=== PATIENT | female | born 1970 | race Caucasian/White ===

== ENCOUNTER 2016-03-26 13:50 | Inpatient (IN) | payer MEDICAID, OTHER ==
[2016-03-26] MEDS ORDERED: SODIUM CHLORIDE 0.9% 500 ML IV STA (14:27)
--- NOTE | 2016-03-26 14:37 | ED ---
Overdose HPI - General Chief Complaint: Overdose Stated Complaint: Overdose Time Seen by Provider: 03/26/16 14:17 Source: EMS Mode of arrival: EMS - History of Present Illness Initial Comments: Vision has a history of anorexia nervosa pain now history of long-standing depression mom found her this morning passed out then she told mom that she should take some Tylenol about 3 AM in the morning then she admitted that she snorted some of reflexes she has a long history of depression recently seen her PA on the increased her dose of Effexor and she was started on Buspar at this point is that this point she denies any suicidal attempt but she admits she is very depressed no headaches no neck stiffness has been coughing no abdominal pain no frequency urgency dysuria no weakness of upper or lower extremity - Related Data Home Medications Medication Instructions Recorded Confirmed No Known Home Medications [No 03/26/16 03/26/16 Known Home Medications] Allergies Allergy/AdvReac Type Severity Reaction Status Date / Time No Known Allergies Allergy Verified 03/26/16 14:07 Review of Systems ROS Statement: Those systems with pertinent positive or pertinent negative responses have been documented in the HPI. ROS Other: All systems not noted in ROS Statement are negative. Past Medical History Past Medical History: Thyroid Disorder Additional Past Medical History / Comment(s): anxorexia, buliemia, depression History of Any Multi-Drug Resistant Organisms: None Reported Additional Past Surgical History / Comment(s): breast inplants Past Psychological History: Anxiety, Depression Additional Psychological History / Comment(s): Eating disorder Smoking Status: Current every day smoker Past Alcohol Use History: None Reported Additional Past Alcohol Use History / Comment(s): Patient is a smoker of 3-4 cigarettes per day. She denies use of alcohol. She denies any medical marijuana marijuana or street drug use. Past Drug Use History: None Reported - Past Family History Mother Additional Family Medical History / Comment(s): Mother is healthy at age 71. Father Additional Family Medical History / Comment(s): Father is alive and healthy at age 80. Brother(s) Additional Family Medical History / Comment(s): Patient has 2 brothers and one sister and they are all healthy. General Exam - General Exam Comments Initial Comments: General: The patient is awake and very slow to answer, she has eyes open, answers are appropriate. Very very slow Skin: Skin is warm and dry and no rashes or lesions are noted. Eye: Pupils are equal, round and reactive to light, extra-ocular movements are intact; there is normal conjunctiva bilaterally. Ears, nose, mouth and throat: There are moist mucous membranes and no oral lesions. Neck: The neck is supple, there is no tenderness or JVD. Cardiovascular: There is a regular rate and rhythm. No murmur, rub or gallop is appreciated. Respiratory: To auscultation bilateral, no wheezing no rhonchi no distress respiratory judd noticed Gastrointestinal: Did not allow me to examine her belly Back: There is no tenderness to palpation in the midline. There is no obvious deformity. Musculoskeletal: Normal ROM, no tenderness, There is no pedal edema. There is no calf tenderness or swelling. No cords were appreciated. Neurological: CN II-XII intact, Cranial nerves III through XII are intact. There are no obvious motor or sensory deficits. Coordination appears grossly intact. Speech is normal. Psychiatric: Seems depressed, weak pale cachectic denies any suicidal or homicidal ideation. Course Vital Signs 03/26/16 03/26/16 03/26/16 13:54 15:40 16:43 Temperature 96.8 F L Pulse Rate 65 77 77 Respiratory 16 16 14 Rate Blood Pressure 95/63 94/53 94/55 O2 Sat by Pulse 100 100 98 Oximetry EKG shows ventricular rate of 72 is normal sinus rhythm PA interval is 1:30 QRS duration is 82 QT/QTc is 414/453 review of this EKG does not show any ST elevation or ST depression We did call poison control and now they recommended supportive care at this point correction of the electrolyte imbalance and dehydration Medical Decision Making - Lab Data Result diagrams: 03/26/16 15:14 03/26/16 14:10 Lab Results 03/26/16 03/26/16 03/26/16 Range/Units 14:10 14:10 14:10 WBC (3.8-10.6) k/uL RBC (3.80-5.40) m/uL Hgb (11.4-16.0) gm/dL Hct (34.0-46.0) % MCV (80.0-100.0) fL MCH (25.0-35.0) pg MCHC (31.0-37.0) g/dL RDW (11.5-15.5) % Plt Count (150-450) k/uL Neutrophils % % Lymphocytes % % Monocytes % % Eosinophils % % Basophils % % Neutrophils # (1.3-7.7) k/uL Lymphocytes # (1.0-4.8) k/uL Monocytes # (0-1.0) k/uL Eosinophils # (0-0.7) k/uL Basophils # (0-0.2) k/uL PT 10.9 (9.0-12.0) sec INR 1.1 (<1.1) Sodium 142 (137-145) mmol/L Potassium 3.6 (3.5-5.1) mmol/L Chloride 104 (98-107) mmol/L Carbon Dioxide 27 (22-30) mmol/L Anion Gap 11 mmol/L BUN 10 (7-17) mg/dL Creatinine 0.50 L (0.52-1.04) mg/dL Est GFR (MDRD) Af Amer >60 (>60 ml/min/1.73 sqM) Est GFR (MDRD) Non-Af >60 (>60 ml/min/1.73 sqM) Glucose 94 (74-99) mg/dL Plasma Lactic Acid Sean 1.1 (0.7-2.0) mmol/L Calcium 8.3 L (8.4-10.2) mg/dL Total Bilirubin 0.2 (0.2-1.3) mg/dL AST 17 (14-36) U/L ALT 28 (9-52) U/L Alkaline Phosphatase 72 (38-126) U/L Troponin I (0.000-0.034) ng/mL Total Protein 5.2 L (6.3-8.2) g/dL Albumin 3.0 L (3.5-5.0) g/dL Urine HCG, Qual (Not Detectd) Salicylates <1.0 mg/dL Urine Opiates Screen (NotDetected) Ur Oxycodone Screen (NotDetected) Urine Methadone Screen (NotDetected) Ur Propoxyphene Screen (NotDetected) Acetaminophen 214.0 H* ug/mL Ur Barbiturates Screen (NotDetected) U Tricyclic Antidepress (NotDetected) Ur Phencyclidine Scrn (NotDetected) Ur Amphetamines Screen (NotDetected) U Methamphetamines Scrn (NotDetected) U Benzodiazepines Scrn (NotDetected) Urine Cocaine Screen (NotDetected) U Marijuana (THC) Screen (NotDetected) Serum Alcohol <10 mg/dL 03/26/16 03/26/16 03/26/16 Range/Units 14:10 15:14 15:41 WBC 7.6 (3.8-10.6) k/uL RBC 4.52 (3.80-5.40) m/uL Hgb 13.9 (11.4-16.0) gm/dL Hct 42.3 (34.0-46.0) % MCV 93.5 (80.0-100.0) fL MCH 30.8 (25.0-35.0) pg MCHC 32.9 (31.0-37.0) g/dL RDW 13.5 (11.5-15.5) % Plt Count 216 (150-450) k/uL Neutrophils % 63 % Lymphocytes % 26 % Monocytes % 6 % Eosinophils % 2 % Basophils % 0 % Neutrophils # 4.8 (1.3-7.7) k/uL Lymphocytes # 2.0 (1.0-4.8) k/uL Monocytes # 0.5 (0-1.0) k/uL Eosinophils # 0.1 (0-0.7) k/uL Basophils # 0.0 (0-0.2) k/uL PT (9.0-12.0) sec INR (<1.1) Sodium (137-145) mmol/L Potassium (3.5-5.1) mmol/L Chloride (98-107) mmol/L Carbon Dioxide (22-30) mmol/L Anion Gap mmol/L BUN (7-17) mg/dL Creatinine (0.52-1.04) mg/dL Est GFR (MDRD) Af Amer (>60 ml/min/1.73 sqM) Est GFR (MDRD) Non-Af (>60 ml/min/1.73 sqM) Glucose (74-99) mg/dL Plasma Lactic Acid Sean (0.7-2.0) mmol/L Calcium (8.4-10.2) mg/dL Total Bilirubin (0.2-1.3) mg/dL AST (14-36) U/L ALT (9-52) U/L Alkaline Phosphatase (38-126) U/L Troponin I <0.012 (0.000-0.034) ng/mL Total Protein (6.3-8.2) g/dL Albumin (3.5-5.0) g/dL Urine HCG, Qual (Not Detectd) Salicylates mg/dL Urine Opiates Screen Not Detected (NotDetected) Ur Oxycodone Screen Not Detected (NotDetected) Urine Methadone Screen Not Detected (NotDetected) Ur Propoxyphene Screen Not Detected (NotDetected) Acetaminophen ug/mL Ur Barbiturates Screen Not Detected (NotDetected) U Tricyclic Antidepress Not Detected (NotDetected) Ur Phencyclidine Scrn Not Detected (NotDetected) Ur Amphetamines Screen Detected H (NotDetected) U Methamphetamines Scrn Detected H (NotDetected) U Benzodiazepines Scrn Detected H (NotDetected) Urine Cocaine Screen Not Detected (NotDetected) U Marijuana (THC) Screen Not Detected (NotDetected) Serum Alcohol mg/dL 03/26/16 Range/Units 15:41 WBC (3.8-10.6) k/uL RBC (3.80-5.40) m/uL Hgb (11.4-16.0) gm/dL Hct (34.0-46.0) % MCV (80.0-100.0) fL MCH (25.0-35.0) pg MCHC (31.0-37.0) g/dL RDW (11.5-15.5) % Plt Count (150-450) k/uL Neutrophils % % Lymphocytes % % Monocytes % % Eosinophils % % Basophils % % Neutrophils # (1.3-7.7) k/uL Lymphocytes # (1.0-4.8) k/uL Monocytes # (0-1.0) k/uL Eosinophils # (0-0.7) k/uL Basophils # (0-0.2) k/uL PT (9.0-12.0) sec INR (<1.1) Sodium (137-145) mmol/L Potassium (3.5-5.1) mmol/L Chloride (98-107) mmol/L Carbon Dioxide (22-30) mmol/L Anion Gap mmol/L BUN (7-17) mg/dL Creatinine (0.52-1.04) mg/dL Est GFR (MDRD) Af Amer (>60 ml/min/1.73 sqM) Est GFR (MDRD) Non-Af (>60 ml/min/1.73 sqM) Glucose (74-99) mg/dL Plasma Lactic Acid Sean (0.7-2.0) mmol/L Calcium (8.4-10.2) mg/dL Total Bilirubin (0.2-1.3) mg/dL AST (14-36) U/L ALT (9-52) U/L Alkaline Phosphatase (38-126) U/L Troponin I (0.000-0.034) ng/mL Total Protein (6.3-8.2) g/dL Albumin (3.5-5.0) g/dL Urine HCG, Qual Not Detected (Not Detectd) Salicylates mg/dL Urine Opiates Screen (NotDetected) Ur Oxycodone Screen (NotDetected) Urine Methadone Screen (NotDetected) Ur Propoxyphene Screen (NotDetected) Acetaminophen ug/mL Ur Barbiturates Screen (NotDetected) U Tricyclic Antidepress (NotDetected) Ur Phencyclidine Scrn (NotDetected) Ur Amphetamines Screen (NotDetected) U Methamphetamines Scrn (NotDetected) U Benzodiazepines Scrn (NotDetected) Urine Cocaine Screen (NotDetected) U Marijuana (THC) Screen (NotDetected) Serum Alcohol mg/dL Disposition Clinical Impression: Drug overdose, Depression, Acetaminophen toxicity Disposition: ADMITTED IP TO THIS HOSP Condition: Good Referrals: Tamika Beckman MD [Primary Care Provider] - 1-2 days
[2016-03-26 15:02] LABS: INR 1.1 (<1.1); Prothrombin Time 10.9 sec (9.0-12.0)
[2016-03-26 15:05] LABS: ALT 28 U/L (9-52); AST 17 U/L (14-36); Alcohol <10 mg/dL; Alkaline Phosphatase 72 U/L (38-126); Anion Gap 11 mmol/L; Blood Urea Nitrogen 10 mg/dL (7-17); Calcium 8.3 mg/dL (8.4-10.2); Carbon Dioxide 27 mmol/L (22-30); Chloride 104 mmol/L (98-107); Glucose 94 mg/dL (74-99); Non-African American GFR(MDRD) >60 (>60 ml/min/1.73 sqM); Potassium 3.6 mmol/L (3.5-5.1); Salicylate <1.0 mg/dL; Sodium 142 mmol/L (137-145); Total Bilirubin 0.2 mg/dL (0.2-1.3); Total Protein 5.2 g/dL (6.3-8.2)
[2016-03-26 15:25] LABS: Basophils % (A) 0 %; CH 30.9; CHCM 33.2; Eosinophils # (A) 0.1 k/uL (0-0.7); Eosinophils % (A) 2 %; HCT 42.3 % (34.0-46.0); HDW 2.39; HGB 13.9 gm/dL (11.4-16.0); Luc # (Auto) 0.18; Luc % (Auto) 2; Lymphocytes % (A) 26 %; MCH 30.8 pg (25.0-35.0); MCHC 32.9 g/dL (31.0-37.0); MCV 93.5 fL (80.0-100.0); Mean Platelet Volume 6.8; Monocytes # (A) 0.5 k/uL (0-1.0); Monocytes % (A) 6 %; Neutrophils # (A) 4.8 k/uL (1.3-7.7); Neutrophils % (A) 63 %; RBC 4.52 m/uL (3.80-5.40); RDW 13.5 % (11.5-15.5); WBC 7.6 k/uL (3.8-10.6); WBC (Perox) 7.63
[2016-03-26] MEDS ORDERED: ACETYLCYSTEINE 6,000 MG/30 ML VIAL PO ONE (17:01)
--- NOTE | 2016-03-26 17:01 | XR ---
EXAMINATION TYPE: XR chest 2V DATE OF EXAM: 03/26/2016 4:16 PM COMPARISON: None HISTORY: 45-year-old female with drug overdose, rule out pneumonia. TECHNIQUE: AP and lateral views FINDINGS: The cardiomediastinal silhouette, aorta, and pulmonary vasculature are within normal limits. There is hyperinflation with increased retrosternal clear space. Otherwise, lungs and pleural spaces are chantel r. IMPRESSION: Possible underlying emphysema. No acute cardiopulmonary process.
[2016-03-26] MEDS ORDERED: NALOXONE 0.4 MG/ML 1 ML VIAL IV PRN (17:09)
--- NOTE | 2016-03-26 18:10 | CT ---
EXAMINATION TYPE: CT brain wo con DATE OF EXAM: 03/26/2016 5:35 PM COMPARISON: NONE HISTORY: Altered mental status. CT DLP: 1168.00 mGycm Automated exposure control for dose reduction was used. FINDINGS: The ventricles and sulci appear normal. There is no mass effect or midline shift. There is no sign of intracranial hemorrhage. The calvarium is intact. IMPRESSION: Negative unenhanced head CT scan.
[2016-03-26] MEDS ORDERED: Potassium Replacement Protocol 1 EACH MISC MISCELLANE PRN (22:51)
[2016-03-26] MEDS: SODIUM CHLORIDE 0.9% 1,000 ML IV SCH (23:39)
[2016-03-26] MEDS: POTASSIUM CHLORIDE 10 MEQ, LIDOCAINE 2% INJ 10 MG in SODIUM CHLORIDE 0.9% 100 ML IV SCH (23:39)
[2016-03-27] MEDS: POTASSIUM CHLORIDE 10 MEQ, LIDOCAINE 2% INJ 10 MG in SODIUM CHLORIDE 0.9% 100 ML IV SCH (00:28)
[2016-03-27] MEDS: ACETYLCYSTEINE 6,000 MG/30 ML VIAL PO SCH ×6 (00:28→20:15)
[2016-03-27 03:51] LABS: Basophils % (A) 0 %; CH 30.9; CHCM 33.3; Eosinophils # (A) 0.1 k/uL (0-0.7); Eosinophils % (A) 1 %; HCT 36.6 % (34.0-46.0); HDW 2.39; HGB 12.3 gm/dL (11.4-16.0); Luc # (Auto) 0.13; Luc % (Auto) 1; Lymphocytes # (A) 1.8 k/uL (1.0-4.8); Lymphocytes % (A) 14 %; MCH 31.4 pg (25.0-35.0); MCHC 33.6 g/dL (31.0-37.0); MCV 93.3 fL (80.0-100.0); Monocytes # (A) 0.5 k/uL (0-1.0); Monocytes % (A) 4 %; Neutrophils # (A) 10.5 k/uL (1.3-7.7); Neutrophils % (A) 80 %; RBC 3.92 m/uL (3.80-5.40); RDW 13.6 % (11.5-15.5); WBC (Perox) 13.86
[2016-03-27 04:07] LABS: ALT 143 U/L (9-52); AST 97 U/L (14-36); Alkaline Phosphatase 67 U/L (38-126); Anion Gap 10 mmol/L; Blood Urea Nitrogen 16 mg/dL (7-17); Calcium 8.6 mg/dL (8.4-10.2); Carbon Dioxide 27 mmol/L (22-30); Chloride 105 mmol/L (98-107); Glucose 83 mg/dL (74-99); Non-African American GFR(MDRD) >60 (>60 ml/min/1.73 sqM); Potassium 4.1 mmol/L (3.5-5.1); Sodium 142 mmol/L (137-145); Total Bilirubin 0.3 mg/dL (0.2-1.3)
[2016-03-27] MEDS: SODIUM CHLORIDE 0.9% 1,000 ML IV SCH ×2 (06:48→16:43)
[2016-03-27 07:48] LABS: Glucose,Whole Blood 92 mg/dL (75-99)
[2016-03-27] MEDS: ONDANSETRON 4 MG/2 ML VIAL IVP PRN (12:13)
[2016-03-27] MEDS: DOXYCYCLINE 50 MG CAP PO SCH ×2 (12:48→20:14)
--- NOTE | 2016-03-27 13:03 | P.CON ---
Psychiatric Consult - . Consult date: 03/27/16 Consult:: IDENTIFYING DATA: She is a 45-year-old female who has a history of anorexia nervosa, depression and opiate use disorder. HISTORY OF PRESENT ILLNESS: She was minimally cooperative with the interview and contradicted herself during the interview. She presented to the emergency department with a purported overdose of Tylenol. Her serum acetaminophen level was toxic at 214. In response to questions about the reason for the overdose she replied "my life sucks." She complained of feeling depressed but was evasive about her reasons for the overdose. She alleged a trigger for the depression and the overdose was her outpatient physician discontinuing Suboxone. However, she told the admitting physician that she became more depressed after her outpatient provider discontinued the antidepressant venlafaxine. PAST PSYCHIATRIC HISTORY: Dr. Santana discharged her from the psychiatric unit on 01/20/2016 with the diagnoses of major depressive disorder recurrent, bulimia nervosa and a substance use disorder. She stated that she was "doing okay" until her outpatient physician discontinued the Suboxone. Her discharge medications included Suboxone 8 mg/2 mg sublingual, mirtazapine 30 mg at bedtime and Effexor XR 150 mg daily. We referred her to [facility] for continued outpatient mental health services. According to record she has had 4 or 5 psychiatric hospitalizations and multiple outpatient mental health treatment episodes. She has a diagnosis of bulimia nervosa in addition to the opiate use disorder. PAST MEDICAL HISTORY: According to record she has a history of thyroid disorder. SUBSTANCE USE HISTORY: She was minimally cooperative and provided little information about her substance abuse history. She talked about abusing Vicodin and starting Suboxone for treatment of her Vicodin abuse. She denied use of other drugs although past urine drug screens were positive for amphetamines and benzodiazepines.. SOCIAL HISTORY: She was living with her parents prior to admission. She is and has one daughter. She has no income.. MENTAL STATUS EXAM: She presented as a thin, cachectic, disheveled appearing woman who is angry and minimally cooperative. She did not make eye contact and did not appear to attend to the interview. She had angry facial expression. She was alert and oriented to person, place and time. She showed psychomotor retardation but no abnormal involuntary movements. I did not evaluate her gait. Her speech was not spontaneous and had a decreased rate, rhythm and volume. Times I could not understand her response to questions because her voice was so quiet. Her affect was depressed, angry and intense. She expressed continued suicidal ideation and wishes. She has depressive cognitions including hopelessness, helplessness and worthlessness. She is willing her inability to obtain opiates. Her thinking was concrete and associations are coherent and logical. She did not appear to be responding to internal stimuli. IMPRESSIONS: Suicide attempt by overdose of acetaminophen, depressive disorder, opiate use disorder, history of bulimia nervosa PLAN: Transfer to the psychiatric unit when she is medically stable, continue suicide precautions and one-to-one sitter, I do not recommend psychotropic medications at this time. 03/27/16 12:43
[2016-03-27 13:31] VITALS: BMI 16.9
[2016-03-27 16:27] LABS: ALT 112 U/L (9-52); AST 48 U/L (14-36); Acetaminophen <10.0 ug/mL; Alkaline Phosphatase 82 U/L (38-126); Anion Gap 11 mmol/L; Blood Urea Nitrogen 20 mg/dL (7-17); Calcium 8.6 mg/dL (8.4-10.2); Carbon Dioxide 22 mmol/L (22-30); Chloride 104 mmol/L (98-107); Glucose 60 mg/dL (74-99); Non-African American GFR(MDRD) >60 (>60 ml/min/1.73 sqM); Potassium 4.3 mmol/L (3.5-5.1); Sodium 137 mmol/L (137-145); Total Bilirubin 0.5 mg/dL (0.2-1.3); Total Protein 5.2 g/dL (6.3-8.2)
[2016-03-27 16:32] LABS: INR 1.3 (<1.1); Prothrombin Time 12.4 sec (9.0-12.0)
--- NOTE | 2016-03-27 17:10 | HP ---
DATE OF ADMISSION: This patient is a 45-year-old female with known history of anorexia nervosa, severely cachectic, who came in after overdosing on Tylenol. Patient was severely depressed and tried to commit suicide. Patient took a handful of Tylenol and Effexor inhalational as well. The exact frame of taking acetaminophen and arrival to ER is unknown, as patient does not exactly know when she took the medication and when she came to ER, although when patient came in, patient's acetaminophen level is 214, which is very high, even if she showed up within 4 hours to ER. Nine hours later there was another level of Tylenol which is around 65, which is also in the toxic level range. Patient is receiving Mucomyst. Patient has mildly elevated ALT. Plan is to continue with Mucomyst, IV fluids and closely monitor the liver function and INR with another repeat test again later in the day today at around 4 p.m. and tomorrow morning. If the liver function remains stable or if ALT improves, patient can be transferred to the psychiatric floor. Patient was evaluated by the psychiatrist already. REVIEW OF SYSTEMS: CONSTITUTIONAL: No fever, no malaise, no fatigue. HEENT: No recent visual problems or hearing problems. Denied any sore throat. CARDIOVASCULAR: No chest pain, orthopnea, PND, no palpitations, no syncope. PULMONARY: No shortness of breath, no cough, no hemoptysis. GASTROINTESTINAL: No diarrhea, no nausea, no vomiting, no abdominal pain. Normoactive bowel sounds. NEUROLOGICAL: No headaches, no weakness, no numbness. HEMATOLOGICAL: Denies any bleeding or petechiae. GENITOURINARY: Denies any burning micturition, frequency, or urgency. MUSCULOSKELETAL/RHEUMATOLOGICAL: Denies any joint pain, swelling, or any muscle pain. ENDOCRINE: Denies any polyuria or polydipsia. PSYCHIATRIC: As mentioned above. The rest of the 14 point review of systems is negative. HOME MEDICATIONS: None. ALLERGIES: NO KNOWN DRUG ALLERGIES. Past medical history is significant for thyroid disorder as per the history, although patient is not taking any levothyroxine. I will obtain TSH level on her. SOCIAL HISTORY: Patient continues to smoke. Patient does have bronchitis-like symptoms at this point of time with greenish sputum production, which I failed to dictated earlier. Denied any alcohol abuse. Does use medical marijuana. Denied any other street drugs. Patient's urine drug screen is negative for marijuana, although positive for amphetamines and benzodiazepines, which she was not prescribed. FAMILY HISTORY: Mother is healthy and is 71 years old. Father is healthy as well without any significant medical problems. PHYSICAL EXAMINATION: VITAL SIGNS: Temperature 97.0, pulse of 64, respiratory rate of 18. Blood pressure is 114/76. Saturating at 96% on room air. GENERAL: Patient is drowsy; able to answer questions, though. Thin built; anorectic. HEENT: Pupils are round and equally reacting to light. EOMI. No scleral icterus. No conjunctival pallor. Normocephalic, atraumatic. No pharyngeal erythema. No thyromegaly. CARDIOVASCULAR: S1 and S2 present. No murmurs, rubs, or gallops. PULMONARY: Chest is clear to auscultation, no wheezing or crackles. ABDOMEN: Soft, nontender, nondistended, normoactive bowel sounds. No palpable organomegaly. MUSCULOSKELETAL: No joint swelling or deformity. EXTREMITIES: No cyanosis, clubbing, or pedal edema. NEUROLOGICAL: Gross neurological examination did not reveal any focal deficits. SKIN: No rashes. LABORATORY DATA: CBC, CMP are abnormal for elevated WBC count of 13,000, which is a reactive response, without any signs or symptoms of infection. AST and ALT are elevated from her baseline of 79 and 28 to 97 and ( ) INR is 1.0. ASSESSMENT AND PLAN: 1. Acetaminophen toxicity. Patient is being closely monitored. Patient already has mildly elevated liver enzymes. Liver enzymes will be repeated again. Patient is on Mucomyst. I believe Poison Control is following the patient as well. 2. Suicide attempt and severe depression. Further management as per Psychiatry. Patient will be transferred to psychiatric floor, as mentioned above, if patient is clinically doing well and her liver enzymes are coming down or stable. 3. Leukocytosis is a reactive response. 4. Tracheobronchitis, for which we will use doxycycline. 5. Nicotine abuse. Counseling was provided. Patient's primary care physician is Dr. Tamika Beckman.
[2016-03-27 17:29] LABS: Appearance,Urine Clear (Clear); Bilirubin,Urine Negative (Negative); Glucose,Urine (UA) Negative (Negative); Ketones,Urine 1+ (Negative); Leukocyte Esterase,Urine Negative (Negative); Nitrite,Urine Negative (Negative); PH, Urine 5.5 (5.0-8.0); Protein,Urine Negative (Negative); Specific Gravity,Urine 1.019 (1.001-1.035); UA Billing (MACRO vs. MICRO) CHEM; Urobilinogen,Urine <2.0 mg/dL (<2.0)
[2016-03-27] MEDS ORDERED: HYDROcodone/APAP 7.5-325MG 1 EACH TAB PO PRN (19:17)
[2016-03-27] MEDS: ALPRAZolam 0.5 MG TAB PO PRN (20:14)
[2016-03-27 21:48] VITALS: RESP 16
[2016-03-27] MEDS ORDERED: NICOTINE 14MG/24HR PATCH TRANSDERM SCH (23:45)
[2016-03-28] MEDS: ACETYLCYSTEINE 6,000 MG/30 ML VIAL PO SCH (00:02)
[2016-03-28] MEDS: SODIUM CHLORIDE 0.9% 1,000 ML IV SCH ×3 (00:03→16:45)
[2016-03-28] MEDS: ALPRAZolam 0.5 MG TAB PO PRN ×3 (01:37→20:19)
[2016-03-28 03:53] VITALS: PULSE 67
[2016-03-28 06:46] LABS: CH 31.4; CHCM 33.9; HCT 40.1 % (34.0-46.0); HDW 2.45; HGB 13.1 gm/dL (11.4-16.0); MCH 30.4 pg (25.0-35.0); MCHC 32.7 g/dL (31.0-37.0); Mean Platelet Volume 7.6; RBC 4.32 m/uL (3.80-5.40); RDW 13.3 % (11.5-15.5); WBC 9.2 k/uL (3.8-10.6)
[2016-03-28 06:51] LABS: INR 1.2 (<1.1); Prothrombin Time 12.1 sec (9.0-12.0)
[2016-03-28 06:58] LABS: ALT 89 U/L (9-52); AST 35 U/L (14-36); Alkaline Phosphatase 80 U/L (38-126); Anion Gap 9 mmol/L; Blood Urea Nitrogen 14 mg/dL (7-17); Calcium 8.9 mg/dL (8.4-10.2); Carbon Dioxide 22 mmol/L (22-30); Chloride 109 mmol/L (98-107); Glucose 77 mg/dL (74-99); Non-African American GFR(MDRD) >60 (>60 ml/min/1.73 sqM); Potassium 4.1 mmol/L (3.5-5.1); Sodium 140 mmol/L (137-145); Total Bilirubin 0.3 mg/dL (0.2-1.3); Total Protein 4.9 g/dL (6.3-8.2)
[2016-03-28] MEDS: ONDANSETRON 4 MG/2 ML VIAL IVP PRN (09:33)
[2016-03-28 12:09] VITALS: BP 104/72; TEMP 96.9
[2016-03-28] MEDS: traMADol 50 MG TAB PO SCH ×2 (12:27→18:28)
[2016-03-28] MEDS: DOXYCYCLINE 50 MG CAP PO SCH (13:40)
--- NOTE | 2016-03-28 14:50 | DS ---
DATE OF ADMISSION: 03/26/2016 DATE OF DISCHARGE: Patient is admitted for acetaminophen overdose and patient liver enzymes remain stable and INR remained stable and patient is okay to be discharged, medically cleared or medically stable to be discharged to psychiatric floor. Patient is complaining of some fatigue, probably from severe depression and patient is also complaining of hot flashes that need to be addressed as an outpatient. Hormone replacement therapy. At this point of time, patient can be transferred to psychiatric floor. Patient was seen and examined on the day of discharge. Vitals are stable. GENERAL: Patient is alert and oriented x3, definitely cachectic and moderately malnourished. HEENT: Pupils are round and equally reacting to light. EOMI. No scleral icterus. No conjunctival pallor. Normocephalic, atraumatic. No pharyngeal erythema. No thyromegaly. CARDIOVASCULAR: S1 and S2 present. No murmurs, rubs, or gallops. PULMONARY: Chest is clear to auscultation, no wheezing or crackles. ABDOMEN: Soft, nontender, nondistended, normoactive bowel sounds. No palpable organomegaly. MUSCULOSKELETAL: No joint swelling or deformity. EXTREMITIES: No cyanosis, clubbing, or pedal edema. NEUROLOGICAL: Gross neurological examination did not reveal any focal deficits. SKIN: No rashes. ASSESSMENT AND PLAN: 1. Acetaminophen toxicity completed, Mucomyst ( ) in the IV form and liver enzymes remain stable. 2. Suicide attempt and severe depression management as per psychiatry. 3. Tracheobronchitis for which patient will continue 4 more days of doxycycline. 4. Leukocytosis. 5. Nicotine abuse. Counseling was provided. 6. Fatigue secondary to depression. 7. TSH is minimally low, T4 is 1.2. No further intervention at this point of time.
[2016-03-28] MEDS ORDERED: NICOTINE 14MG/24HR PATCH TRANSDERM SCH (21:00)
== END 2016-03-28 20:30 | DRG 918 ==
LOC: EC 13:50 → 6SEL 17:16
PROVIDERS: ADMIT Internal Medicine; ATTEND Internal Medicine
DX: T39.1X2A Poisoning by 4-Aminophenol derivatives, intentional self-harm, initial encounter (principal); R64 Cachexia; E44.0 Moderate protein-calorie malnutrition; F50.00 Anorexia nervosa, unspecified; F50.2 Bulimia nervosa; Z68.1 Body mass index [BMI] 19.9 or less, adult; F33.9 Major depressive disorder, recurrent, unspecified; D72.829 Elevated white blood cell count, unspecified; J40 Bronchitis, not specified as acute or chronic; T43.212A Poisoning by selective serotonin and norepinephrine reuptake inhibitors, intentional self-harm, initial encounter; R74.8 Abnormal levels of other serum enzymes; E86.0 Dehydration; E87.8 Other disorders of electrolyte and fluid balance, not elsewhere classified; E07.9 Disorder of thyroid, unspecified; F12.90 Cannabis use, unspecified, uncomplicated; F11.10 Opioid abuse, uncomplicated; F41.9 Anxiety disorder, unspecified; R53.1 Weakness; N95.1 Menopausal and female climacteric states; R23.2 Flushing; F17.210 Nicotine dependence, cigarettes, uncomplicated; Z56.0 Unemployment, unspecified; Z79.899 Other long term (current) drug therapy; Z96.89 Presence of other specified functional implants; Z71.6 Tobacco abuse counseling; Y92.009 Unspecified place in unspecified non-institutional (private) residence as the place of occurrence of the external cause
CPT/HCPCS: 36415; 70450; 71020; 80053; 80306; 80320; 81003; 81025; 82075; 83520; 83605; 84439; 84443; 84484; 85025; 85027; 85610; 93005; 96360; 96361; 99285

== ENCOUNTER 2016-03-28 17:19 | Inpatient (IN) | payer MEDICAID, OTHER ==
[2016-03-28] MEDS ORDERED: MAG HYDROX/AL HYDROX/SIMETH 30 ML CUP PO PRN (17:52)
[2016-03-28] MEDS ORDERED: MAGNESIUM HYDROXIDE 2,400 MG/10 ML CUP PO PRN (17:52)
[2016-03-28] MEDS ORDERED: ACETAMINOPHEN TAB 325 MG TAB PO PRN (17:52)
[2016-03-28 20:47] VITALS: RESP 16
[2016-03-28 21:10] VITALS: BMI 17.4
[2016-03-28] MEDS: DOXYCYCLINE 50 MG CAP PO SCH (22:44)
[2016-03-28] MEDS: BENZOCAINE/MENTHOL LOZENG 1 EACH LOZENGE MUCOUS MEM PRN (22:44)
[2016-03-28] MEDS: traMADol 50 MG TAB PO SCH ×2 (22:45→23:53)
[2016-03-29] MEDS: BENZOCAINE/MENTHOL LOZENG 1 EACH LOZENGE MUCOUS MEM PRN ×4 (01:32→15:38)
[2016-03-29] MEDS: DOXYCYCLINE 50 MG CAP PO SCH ×2 (09:11→21:47)
[2016-03-29] MEDS: traMADol 50 MG TAB PO SCH ×4 (09:12→21:29)
--- NOTE | 2016-03-29 15:23 | P.HP ---
Psychiatric H&P - . H&P Date: 03/29/16 History & Physical: Allergies Allergy/AdvReac Type Severity Reaction Status Date / Time No Known Allergies Allergy Verified 03/28/16 21:10 Vital Signs Temp 97.3 F L 03/28/16 20:55 Pulse 61 03/29/16 06:30 Resp 16 03/29/16 06:30 BP 118/73 03/29/16 06:30 Pulse Ox 98 03/28/16 20:55 Intake & Output 03/28/16 03/29/16 03/29/16 18:59 06:59 18:59 Weight 44.5 kg 43.2 kg 03/29/16 15:13 IDENTIFYING DATA: 45-year-old female patient HPI: Patient is admitted to the inpatient psychiatric unit [facility] on a voluntary basis with recent depression and overdose of Tylenol. Patient states that last Wednesday night she took an overdose of Tylenol approximately 10-12 pills. She says she was feeling overtired, not thinking and was feeling down and depressed. She has she was not intentionally trying to hurt herself and she feels like it was a stupid thing to do. She does her mom found her out of it and called EMS. She does her mom monitors her medications. She was initially hospitalized medically because they wanted to make sure her liver enzymes were okay and she states those been normal. Says she is physically feeling a lot better today, was feeling out of it for a couple of days after the overdose. Regarding any life stressor she says she's been wanting to get on the right medication. She says she still struggles with opioid addiction. She admits to being a worrier. She does most of the time she is not feeling she has significant mood swings. She does not describe having racing thoughts at night. She denies any skin of significant irritability. PAST PSYCHIATRIC HISTORY: She has had a previous [facility] psychiatric admission twice here in the past. She has been on Effexor, most recent dose on the medical record is 75 mg 3 times a day. She is also recently on trazodone 50 mg tablet bedtime and BuSpar 10 mg twice a day. She does the trazodone helps her sleep a little bit. She says she has been on Klonopin in the past for years. She does inquire regarding going back on Klonopin. She does have history of recurrent episodes of depression. She also describes wanting to get back on Suboxone which had been prescribed by Dr. Mari. She was apparently discharged from [facility] and is currently at [facility] now. She's been off the Suboxone since November and says she felt good on it. She is supposed to start seeing a new counselor at [facility] tomorrow. She says when she first started the Effexor is helpful but doesn't seem to be getting the same affect right now since she has been off of the Suboxone. She has been diagnosed as bipolar bipolar disorder in the past and that diagnosis was withdrawn. She denies any history of manic episodes. She has had 2 prior suicide attempts which were overdoses. She denies any history of overtaking benzodiazepines. PMH: Denies ALLERGIES: No known ALLERGIES MEDICATIONS: Tylenol when necessary, Maalox when necessary, Cepacol lozenge when necessary, Vibramycin, Magnesia when necessary, Ultram CHEMICAL DEPENDENCY HISTORY: She reports a history of addiction to Vicodin. She was on Suboxone for 6 months. She has had some relapse on Methow off of Suboxone. No history of any other addictions. FAMILY PSYCHIATRIC HISTORY: Sister with depression. FAMILY CHEMICAL DEPENDENCY HISTORY: None known at this time. SOCIAL HISTORY: She currently lives with her mom and dad in a home. She has not worked in one years time. She is had been once and . She has 3 children who are 1114 and 18. The younger 2 children are with their dad and the 18-year-old is on his own. MENTAL STATUS EXAM: She is alert and cooperative with the interview. She wears glasses. Her speech is fluent, not rapid or pressured. Thought processes organized. Her mood is described as "okay." She denies any current thoughts of harm to self or others. She denies any hallucinations or paranoid thoughts. Her insight is adequate, judgment shows evidence of recent impairment. Cognitively she appears very grossly intact. STRENGTHS/WEAKNESSES: Strengths-support system; weaknesses-coping skills INTELLECTUAL FUNCTIONING: Average IMPRESSIONS: AXIS I : Major depressive disorder, recurrent; generalized anxiety disorder; opioid use disorder AXIS II: Deferred AXIS III: Status post Tylenol overdose AXIS IV: Stressors regarding treatment issues AXIS V: 30 PLAN: Patient admitted to the inpatient psychiatric unit [facility] on a voluntary basis. She'll be placed on SP 15 minute precautions. She will be participate in group and activity therapies. We are reinitiating Effexor for depression and anxiety at 37.5 mg twice a day. Lamictal 25 mg at bedtime for augmentation for depression and to help with some description of racing thoughts. Trazodone 50 mg at bedtime as needed will be ordered for insomnia. At this time would prefer to avoid benzodiazepine, we will monitor the level of anxiety and monitor her response to reinitiating the Effexor plus Lamictal. Dr. Santana will be initiating care this patient starting tomorrow. Estimated length of stay is 3-5 days. Prognosis is guarded. social work staff to look into family support systems.
[2016-03-29] MEDS ORDERED: lamoTRIgine 25 MG TAB PO SCH (21:00)
[2016-03-29] MEDS: VENLAFAXINE HCL 37.5 MG TAB PO SCH (21:29)
[2016-03-30] MEDS: traZODone HCL 50 MG TAB PO PRN (00:16)
[2016-03-30] MEDS: traMADol 50 MG TAB PO SCH ×4 (09:05→22:09)
[2016-03-30] MEDS: VENLAFAXINE HCL 37.5 MG TAB PO SCH (09:06)
[2016-03-30] MEDS: BENZOCAINE/MENTHOL LOZENG 1 EACH LOZENGE MUCOUS MEM PRN (09:40)
[2016-03-30] MEDS: DOXYCYCLINE 50 MG CAP PO SCH ×2 (09:41→21:52)
--- NOTE | 2016-03-30 11:03 | CONS ---
DATE OF CONSULTATION: Reason for consultation is medical clearance. Patient is a known patient to me as patient was admitted to with overdose of Tylenol ( ). Patient's liver enzymes are stable, her INR was stable and as patient had an intentional overdose, severely depressed so the patient was subsequently transferred to psychiatric floor for suicide attempt. Patient is clinically doing well. Patient denied any fever, chills. Patient denied any nausea, vomiting, abdominal pain, dysuria, cough, runny nose or fevers. REVIEW OF SYSTEMS: CONSTITUTIONAL: No fever, no malaise, no fatigue. HEENT: No recent visual problems or hearing problems. Denied any sore throat. CARDIOVASCULAR: No chest pain, orthopnea, PND, no palpitations, no syncope. PULMONARY: No shortness of breath, no cough, no hemoptysis. GASTROINTESTINAL: No diarrhea, no nausea, no vomiting, no abdominal pain. Normoactive bowel sounds. NEUROLOGICAL: No headaches, no weakness, no numbness. HEMATOLOGICAL: Denies any bleeding or petechiae. GENITOURINARY: Denies any burning micturition, frequency, or urgency. MUSCULOSKELETAL/RHEUMATOLOGICAL: Denies any joint pain, swelling, or any muscle pain. ENDOCRINE: Denies any polyuria or polydipsia. The rest of the 14 point review of systems is negative. PAST MEDICAL HISTORY: Significant for hypothyroidism. I did to TSH and T4 on the patient when she was admitted into my floor. Patient is not taking any thyroid medications. Patient's TSH was actually low and T4 is normal, probably related to ( ) and TSH to be evaluated in about a month. SOCIAL HISTORY: Patient continues to smoke. Denied any alcohol abuse or any drug abuse. FAMILY HISTORY: Multiple medical problems in mother and father. PHYSICAL EXAMINATION: VITAL SIGNS: Temperature 97.3, pulse of 61, respiratory rate of 16, blood pressure is 118/73, saturating at 98% on room air. GENERAL EXAMINATION: Patient is alert and oriented x3. Not in respiratory distress. HEENT: Pupils are round and equally reacting to light. EOMI. No scleral icterus. No conjunctival pallor. Normocephalic, atraumatic. No pharyngeal erythema. No thyromegaly. CARDIOVASCULAR: S1 and S2 present. No murmurs, rubs, or gallops. PULMONARY: Chest is clear to auscultation, no wheezing or crackles. ABDOMEN: Soft, nontender, nondistended, normoactive bowel sounds. No palpable organomegaly. MUSCULOSKELETAL: No joint swelling or deformity. EXTREMITIES: No cyanosis, clubbing, or pedal edema. NEUROLOGICAL: Gross neurological examination did not reveal any focal deficits. SKIN: No rashes. LABORATORY DATA: None available. ASSESSMENT AND PLAN: 1. Severe depression and suicide attempt with management as per Psychiatric Service. 2. Tylenol toxicity for which we treated her with Mucomyst and questionable history of hypothyroidism. Management as mentioned above, repeat TSH in about a month.
--- NOTE | 2016-03-30 11:12 | P.PN ---
Progress Note - Text Interval history: The patient is found in her room she follows me to an interview room. She reports that her mood has been depressed but she is feeling better here on the mental health unit. She presented to the hospital after an overdose with Tylenol last week. She was medically admitted and then later transferred to the mental health unit once medically cleared. She is known to us from prior inpatient psychiatric admissions. I did have her [facility] and health services note available she now sees a nurse practitioner for psychiatric medication management and no longer sees Dr. Mari. She is in the beginning stages of enrolling into DBT. We reviewed her medications. She was seen by Dr. Rust over the weekend. She had recently been started on BuSpar by her nurse practitioner for a primary complaint of anxiety. I agree with continuing that medication and not pursuing the Lamictal and this time. We confirmed that her Effexor XR dose is supposed to be 225 mg daily and that was corrected. She has been utilizing trazodone at bedtime. She was previously on Remeron at bedtime but did not like how she felt with it. She is endorsing no purging behavior here in the hospital and states that she gained anywhere from 5-7 pounds. Mental status exam: The patient is a cachectic female appearing older than her stated age. She is dressed in her own clothing she wears eyeglasses. She is pleasant and cooperative. Speech is fluent nonpressured and is spontaneous. She reports her mood is improving she feels that suicidal thoughts are resolving. There is no tangential thinking loose associations or flight of ideas. She is endorsing no hallucinations or specific delusions. Insight and judgment limited. There is no demonstration of verbal or physical aggressiveness. She is oriented to person place and date. Affect is mildly constricted. Plan: The patient will continue on Effexor XR 225 mg daily, Lamictal will be discontinued we will restart BuSpar 10 mg twice daily continue trazodone 50 mg at bedtime. She will not be started on Suboxone here we will not restart a benzodiazepine. She is encouraged to participate in the milieu we will monitor her for safety. I expect she will be appropriate for discharge possibly by mid week. Vital signs reviewed.
[2016-03-30] MEDS: busPIRone HCl 10 MG TAB PO SCH (21:52)
[2016-03-31] MEDS: traZODone HCL 50 MG TAB PO PRN (00:39)
[2016-03-31] MEDS ORDERED: LEVOTHYROXINE 25 MCG TAB PO SCH (06:30)
[2016-03-31 06:40] VITALS: BP 80/51; PULSE 100; TEMP 97.8
[2016-03-31] MEDS: busPIRone HCl 10 MG TAB PO SCH (08:31)
[2016-03-31] MEDS: DOXYCYCLINE 50 MG CAP PO SCH (08:31)
[2016-03-31] MEDS: traMADol 50 MG TAB PO SCH (08:31)
[2016-03-31] MEDS ORDERED: VENLAFAXINE HCL ER 75 MG CAP PO SCH (09:00)
--- NOTE | 2016-03-31 10:02 | P.DS ---
Providers Date of admission: 03/28/16 20:30 Expected date of discharge: 03/31/16 Attending physician: Girish Santana Consults: 03/28/16 17:52 Consult Physician Routine Consulting Provider: Asael Sommer Consult Reason/Comments: Follow up H & P Do you want consulting provider notified?: Yes Primary care physician: Tamika Beckman - Discharge Diagnosis(es) (1) Major depressive disorder Current Visit: Yes Status: Acute (2) Bulimia nervosa Current Visit: Yes Status: Acute (3) Opiate dependence Current Visit: Yes Status: Acute (4) Generalized anxiety disorder Current Visit: Yes Status: Acute Hospital Course: Brief summary of admission note: This patient is a 45-year-old female who was admitted to the mental health unit from the medical floor after she overdosed with Tylenol. She was seen by Dr. Jacobsen as a psychiatric consultation and subsequently admitted to the mental health unit by Dr. Rust. Reportedly she overdosed with Tylenol taking 10-12 pills. She had reported to Dr. Rust she was not intentionally trying to herself and felt like it was a stupid thing to do. Again she had become overwhelmed with stressors and utilize self-injurious behavior. For full detail please refer to Dr. Rust is psychiatric evaluation dated 03/29/2016. Summary of hospital course: The patient was admitted to the mental health unit involuntarily from the medical floor. She was continued on Effexor initially which was different than her outpatient dose BuSpar was discontinued Lamictal 25 mg at bedtime was started and she was given trazodone. She has begun working with a nurse practitioner through [facility] in the last progress note was reviewed. It seems that the Effexor XR was recently titrated to 225 mg daily, BuSpar was initiated 10 mg twice daily, trazodone was prescribed for sleep. After assuming the patient's care I did change the patient's medication back to her last outpatient regimen as it had been recently started. I agree with the BuSpar being utilized for anxiety symptoms. The Lamictal was discontinued. The patient has been participating in groups. She has undergone medical consultation. She reports a weight gain while here and has not reported any participation in eating disorder behavior. She does have a support meeting scheduled with her parents this morning. She reports a progressive improvement of symptoms and she reports of suicidal thoughts have resolved. She does look forward to participating in DBT therapy through [facility]. Mental status exam: The patient is a cachectic appearing female. Hygiene grooming adequate eye contact appropriate. She is pleasant and cooperative. She is dressed in her own clothing. She reports her mood is much improved she is reporting no hopelessness thinking no suicidal or homicidal ideation intent or plan. Affect is appropriately expressive including appropriate smiling. Thought process is linear she demonstrates no flight of ideas tangential thinking or loose associations. Speech is spontaneous fluent nonpressured. She demonstrates no evidence of hypomanic or manic symptoms. She endorses no auditory or visual hallucinations she is endorsing no specific delusions. There is no overt evidence of psychosis. Insight and judgment improved. Cognitively her ability to remain grossly intact. She remains alert and oriented to person place and date. She is able to name the days of the week backwards in terms of concentration she is able to recall events from the last several days in terms of short-term memory. There is no expression of verbal or physical aggressiveness. Impressions 1. Major depressive disorder recurrent severe without psychosis, bulimia nervosa, opiate use disorder, generalized anxiety disorder 2. Borderline personality disorder traits 3. Recent Tylenol overdose 4. Psychosocial dysfunction due to impaired coping skills Plan: The patient will be discharged from the mental health unit to return home with her family. She will continue following up with [facility] social work will verify her next appointment. She will continue on Effexor XR 225 mg daily, BuSpar 10 mg twice daily, trazodone 50 mg at bedtime. It is in her best interest not to be prescribed benzodiazepines. There is no imminent safety risk she is appropriate for transition back to outpatient care following her family meeting. She is instructed not to use any alcohol or illicit drugs or any type of opiate medication. She is instructed to return to the hospital with any acute safety concerns. Plan - Discharge Summary New Discharge Prescriptions: Doxycycline [Vibramycin] 100 mg PO BID #4 cap Levothyroxine Sodium [Synthroid] 25 mcg PO DAILY #30 tab Venlafaxine HCl ER [Effexor XR] 225 mg PO DAILY #45 cap.er.24h busPIRone HCL 10 mg PO BID #60 tablet traZODone HCL 50 mg PO HS #30 tablet Discharge Medication List Doxycycline [Vibramycin] 100 mg PO BID #4 cap 03/31/16 [Rx] Levothyroxine Sodium [Synthroid] 25 mcg PO DAILY #30 tab 03/31/16 [Rx] Venlafaxine HCl ER [Effexor XR] 225 mg PO DAILY #45 cap.er.24h 03/31/16 [Rx] busPIRone HCL 10 mg PO BID #60 tablet 03/31/16 [Rx] traZODone HCL 50 mg PO HS #30 tablet 03/31/16 [Rx]
[2016-03-31] MEDS: BENZOCAINE/MENTHOL LOZENG 1 EACH LOZENGE MUCOUS MEM PRN (11:12)
== END 2016-03-31 12:17 | disposition home or self-care (01) | DRG 885 ==
LOC: 3MHU 20:30
PROVIDERS: ADMIT Psychiatry & Neurology Psychiatry; ATTEND Psychiatry & Neurology Psychiatry
DX: F33.2 Major depressive disorder, recurrent severe without psychotic features (principal); R64 Cachexia; F50.2 Bulimia nervosa; F11.20 Opioid dependence, uncomplicated; F41.1 Generalized anxiety disorder; G47.00 Insomnia, unspecified; F60.3 Borderline personality disorder; E03.9 Hypothyroidism, unspecified; F17.200 Nicotine dependence, unspecified, uncomplicated; Z81.8 Family history of other mental and behavioral disorders; Z91.5 Personal history of self-harm; Z79.899 Other long term (current) drug therapy; Z79.2 Long term (current) use of antibiotics

== ENCOUNTER 2016-04-11 20:35 | Inpatient (IN) | payer MEDICAID, OTHER ==
[2016-04-11 23:06] LABS: Appearance,Urine Clear (Clear); Bilirubin,Urine Negative (Negative); Calcium Oxalate Crystals,Urine Moderate /hpf; Glucose,Urine (UA) Negative (Negative); Ketones,Urine Negative (Negative); Leukocyte Esterase,Urine Small (Negative); Mucus,Urine Occasional /hpf; Nitrite,Urine Negative (Negative); Particle Count 2940; Protein,Urine Trace (Negative); RBC,Urine 6 /hpf (0-5); Specific Gravity,Urine 1.017 (1.001-1.035); Squamous Epithelial Cell,Urine 2 /hpf (0-4); UA Billing (MACRO vs. MICRO) MICRO; Urobilinogen,Urine <2.0 mg/dL (<2.0); WBC,Urine 5 /hpf (0-5)
[2016-04-11 23:08] LABS: Basophils # (A) 0.1 k/uL (0-0.2); Basophils % (A) 1 %; CH 31.4; CHCM 34.7; Eosinophils # (A) 0.3 k/uL (0-0.7); Eosinophils % (A) 4 %; HCT 37.9 % (34.0-46.0); HGB 12.7 gm/dL (11.4-16.0); Luc # (Auto) 0.11; Luc % (Auto) 1; Lymphocytes # (A) 1.9 k/uL (1.0-4.8); Lymphocytes % (A) 24 %; MCH 30.3 pg (25.0-35.0); MCHC 33.4 g/dL (31.0-37.0); MCV 90.8 fL (80.0-100.0); Mean Platelet Volume 7.3; Monocytes # (A) 0.7 k/uL (0-1.0); Monocytes % (A) 9 %; Neutrophils # (A) 4.8 k/uL (1.3-7.7); Neutrophils % (A) 60 %; RBC 4.18 m/uL (3.80-5.40); RDW 13.8 % (11.5-15.5); WBC (Perox) 7.81
[2016-04-11 23:17] LABS: ALT 33 U/L (9-52); AST 16 U/L (14-36); Acetaminophen <10.0 ug/mL; Alkaline Phosphatase 80 U/L (38-126); Anion Gap 10 mmol/L; Blood Urea Nitrogen 19 mg/dL (7-17); Carbon Dioxide 33 mmol/L (22-30); Chloride 100 mmol/L (98-107); Glucose 107 mg/dL (74-99); Non-African American GFR(MDRD) >60 (>60 ml/min/1.73 sqM); Potassium 3.6 mmol/L (3.5-5.1); Salicylate <1.0 mg/dL; Sodium 143 mmol/L (137-145); Total Bilirubin 0.2 mg/dL (0.2-1.3); Total Protein 5.9 g/dL (6.3-8.2)
--- NOTE | 2016-04-12 00:46 | ED ---
Psych HPI - General Chief Complaint: Psychiatric Symptoms Stated Complaint: Petition Time Seen by Provider: 04/11/16 22:24 Source: patient Mode of arrival: ambulatory - History of Present Illness Initial Comments: Patient is a 45-year-old female who presents to ED with a chief complaint of psychiatric disorder. Patient was brought into ED by police on a court order. Patient has a long-standing history of psychiatric disorder for which she is taking multiple psychiatric medications. Patient states compliance with all of these medications. Patient was hospitalized approximately 10 days ago due to an intentional overdose of Tylenol. Patient states that she has not been struggling with any depression or bulimia, anorexia home recently. Patient denies any fevers or chills. Patient denies any suicidal or homicidal ideations today. - Related Data Previous Rx's Medication Instructions Recorded Levothyroxine Sodium [Synthroid] 25 mcg PO DAILY #30 tab 03/31/16 Venlafaxine HCl ER [Effexor XR] 225 mg PO DAILY #45 cap.er.24h 03/31/16 busPIRone HCL 10 mg PO BID #60 tablet 03/31/16 traZODone HCL 50 mg PO HS #30 tablet 03/31/16 Allergies Allergy/AdvReac Type Severity Reaction Status Date / Time No Known Allergies Allergy Verified 04/11/16 20:50 Review of Systems ROS Statement: Those systems with pertinent positive or pertinent negative responses have been documented in the HPI. ROS Other: All systems not noted in ROS Statement are negative. Constitutional: Denies: fever, chills, weakness ENT: Denies: ear pain, throat pain Respiratory: Denies: cough, dyspnea, wheezes, hemoptysis, stridor Cardiovascular: Denies: chest pain Endocrine: Denies: fatigue Gastrointestinal: Denies: abdominal pain, nausea, vomiting, diarrhea Genitourinary: Denies: urgency, dysuria, frequency, hematuria Skin: Denies: rash Neurological: Denies: headache Psychiatric: Reports: anxiety, depression. Denies: homicidal thoughts, suicidal thoughts Past Medical History Past Medical History: Thyroid Disorder Additional Past Medical History / Comment(s): anxorexia, buliemia, depression History of Any Multi-Drug Resistant Organisms: None Reported Additional Past Surgical History / Comment(s): breast inplants Past Anesthesia/Blood Transfusion Reactions: No Reported Reaction Past Psychological History: Anxiety, Depression Additional Psychological History / Comment(s): Eating disorder Smoking Status: Current every day smoker Past Alcohol Use History: None Reported Additional Past Alcohol Use History / Comment(s): Patient is a smoker of 3-4 cigarettes per day. She denies use of alcohol. She denies any medical marijuana marijuana or street drug use. Past Drug Use History: None Reported - Past Family History Mother Additional Family Medical History / Comment(s): Mother is healthy at age 71. Father Additional Family Medical History / Comment(s): Father is alive and healthy at age 80. Brother(s) Additional Family Medical History / Comment(s): Patient has 2 brothers and one sister and they are all healthy. General Exam Limitations: no limitations General appearance: alert, in no apparent distress Head exam: Present: atraumatic Eye exam: Present: normal appearance, PERRL, other (the patient wears glasses) Pupils: Present: normal accommodation ENT exam: Present: normal exam, mucous membranes moist Neck exam: Present: normal inspection Respiratory exam: Present: normal lung sounds bilaterally. Absent: respiratory distress, wheezes, rales, rhonchi, stridor Cardiovascular Exam: Present: regular rate, normal rhythm GI/Abdominal exam: Present: soft. Absent: distended, tenderness, guarding, rebound Extremities exam: Present: normal inspection, full ROM Back exam: Present: normal inspection Neurological exam: Present: alert, oriented X3 Psychiatric exam: Present: flat affect. Absent: homicidal ideation, suicidal ideation Skin exam: Present: warm, dry, intact Course Vital Signs 04/11/16 20:47 Temperature 98.4 F Pulse Rate 85 Respiratory 20 Rate Blood Pressure 131/80 O2 Sat by Pulse 98 Oximetry Medical Decision Making - Medical Decision Making The patient is a 45-year-old female who presents to ED with a chief complaint of psychiatric disorder. Patient was brought to the ED on court order. Will clear patient medically for further evaluation by [facility]. Patient does have a known history of bulimia as well as anorexia. Check BMP to ensure that the patient does not have any electrolyte abnormalities. Check EKG. Given that the patient has had history of intentional drug overdose, will also check acetaminophen and salicylate levels. Blood alcohol level noted to be 0.00. Will check UDS. 12:33 AM Spoke with [facility], who accepts admission of the patient. - Lab Data Result diagrams: 04/11/16 22:58 04/11/16 22:58 Lab Results 04/11/16 04/11/16 04/11/16 Range/Units 20:59 20:59 20:59 WBC (3.8-10.6) k/uL RBC (3.80-5.40) m/uL Hgb (11.4-16.0) gm/dL Hct (34.0-46.0) % MCV (80.0-100.0) fL MCH (25.0-35.0) pg MCHC (31.0-37.0) g/dL RDW (11.5-15.5) % Plt Count (150-450) k/uL Neutrophils % % Lymphocytes % % Monocytes % % Eosinophils % % Basophils % % Neutrophils # (1.3-7.7) k/uL Lymphocytes # (1.0-4.8) k/uL Monocytes # (0-1.0) k/uL Eosinophils # (0-0.7) k/uL Basophils # (0-0.2) k/uL Sodium (137-145) mmol/L Potassium (3.5-5.1) mmol/L Chloride (98-107) mmol/L Carbon Dioxide (22-30) mmol/L Anion Gap mmol/L BUN (7-17) mg/dL Creatinine (0.52-1.04) mg/dL Est GFR (MDRD) Af Amer (>60 ml/min/1.73 sqM) Est GFR (MDRD) Non-Af (>60 ml/min/1.73 sqM) Glucose (74-99) mg/dL Calcium (8.4-10.2) mg/dL Magnesium (1.6-2.3) mg/dL Total Bilirubin (0.2-1.3) mg/dL AST (14-36) U/L ALT (9-52) U/L Alkaline Phosphatase (38-126) U/L Total Protein (6.3-8.2) g/dL Albumin (3.5-5.0) g/dL Urine Color Yellow Urine Appearance Clear (Clear) Urine pH 6.0 (5.0-8.0) Ur Specific [place] 1.017 (1.001-1.035) Urine Protein Trace H (Negative) Urine Glucose (UA) Negative (Negative) Urine Ketones Negative (Negative) Urine Blood Negative (Negative) Urine Nitrate Negative (Negative) Urine Bilirubin Negative (Negative) Urine Urobilinogen <2.0 (<2.0) mg/dL Ur Leukocyte Esterase Small H (Negative) Urine RBC 6 H (0-5) /hpf Urine WBC 5 (0-5) /hpf Ur Squamous Epith Cells 2 (0-4) /hpf Calcium Oxalate Crystal Moderate H (None) /hpf Urine Mucus Occasional H (None) /hpf Urine HCG, Qual Not Detected (Not Detectd) Salicylates mg/dL Urine Opiates Screen Not Detected (NotDetected) Ur Oxycodone Screen Not Detected (NotDetected) Urine Methadone Screen Not Detected (NotDetected) Ur Propoxyphene Screen Not Detected (NotDetected) Acetaminophen ug/mL Ur Barbiturates Screen Not Detected (NotDetected) U Tricyclic Antidepress Not Detected (NotDetected) Ur Phencyclidine Scrn Not Detected (NotDetected) Ur Amphetamines Screen Not Detected (NotDetected) U Methamphetamines Scrn Not Detected (NotDetected) U Benzodiazepines Scrn Detected H (NotDetected) Urine Cocaine Screen Not Detected (NotDetected) U Marijuana (THC) Screen Not Detected (NotDetected) 04/11/16 04/11/16 Range/Units 22:58 22:58 WBC 8.0 (3.8-10.6) k/uL RBC 4.18 (3.80-5.40) m/uL Hgb 12.7 (11.4-16.0) gm/dL Hct 37.9 (34.0-46.0) % MCV 90.8 (80.0-100.0) fL MCH 30.3 (25.0-35.0) pg MCHC 33.4 (31.0-37.0) g/dL RDW 13.8 (11.5-15.5) % Plt Count 346 (150-450) k/uL Neutrophils % 60 % Lymphocytes % 24 % Monocytes % 9 % Eosinophils % 4 % Basophils % 1 % Neutrophils # 4.8 (1.3-7.7) k/uL Lymphocytes # 1.9 (1.0-4.8) k/uL Monocytes # 0.7 (0-1.0) k/uL Eosinophils # 0.3 (0-0.7) k/uL Basophils # 0.1 (0-0.2) k/uL Sodium 143 (137-145) mmol/L Potassium 3.6 (3.5-5.1) mmol/L Chloride 100 (98-107) mmol/L Carbon Dioxide 33 H (22-30) mmol/L Anion Gap 10 mmol/L BUN 19 H (7-17) mg/dL Creatinine 0.70 (0.52-1.04) mg/dL Est GFR (MDRD) Af Amer >60 (>60 ml/min/1.73 sqM) Est GFR (MDRD) Non-Af >60 (>60 ml/min/1.73 sqM) Glucose 107 H (74-99) mg/dL Calcium 9.0 (8.4-10.2) mg/dL Magnesium 2.0 (1.6-2.3) mg/dL Total Bilirubin 0.2 (0.2-1.3) mg/dL AST 16 (14-36) U/L ALT 33 (9-52) U/L Alkaline Phosphatase 80 (38-126) U/L Total Protein 5.9 L (6.3-8.2) g/dL Albumin 3.4 L (3.5-5.0) g/dL Urine Color Urine Appearance (Clear) Urine pH (5.0-8.0) Ur Specific [place] (1.001-1.035) Urine Protein (Negative) Urine Glucose (UA) (Negative) Urine Ketones (Negative) Urine Blood (Negative) Urine Nitrate (Negative) Urine Bilirubin (Negative) Urine Urobilinogen (<2.0) mg/dL Ur Leukocyte Esterase (Negative) Urine RBC (0-5) /hpf Urine WBC (0-5) /hpf Ur Squamous Epith Cells (0-4) /hpf Calcium Oxalate Crystal (None) /hpf Urine Mucus (None) /hpf Urine HCG, Qual (Not Detectd) Salicylates <1.0 mg/dL Urine Opiates Screen (NotDetected) Ur Oxycodone Screen (NotDetected) Urine Methadone Screen (NotDetected) Ur Propoxyphene Screen (NotDetected) Acetaminophen <10.0 ug/mL Ur Barbiturates Screen (NotDetected) U Tricyclic Antidepress (NotDetected) Ur Phencyclidine Scrn (NotDetected) Ur Amphetamines Screen (NotDetected) U Methamphetamines Scrn (NotDetected) U Benzodiazepines Scrn (NotDetected) Urine Cocaine Screen (NotDetected) U Marijuana (THC) Screen (NotDetected) Disposition Clinical Impression: Bulimia, Anorexia nervosa, Depression Disposition: TRANSFER TO PSYCH HOSP/UNIT Condition: Good Referrals: Tamika Beckman MD [Primary Care Provider] - 1-2 days Time of Disposition: :54 Decision to Admit Reason: Admit from EC Decision Date: 04/12/16 Decision Time: 54
[2016-04-12] MEDS ORDERED: MAGNESIUM HYDROXIDE 2,400 MG/10 ML CUP PO PRN (02:54)
[2016-04-12] MEDS ORDERED: ZIPRASIDONE 20 MG VIAL IM PRN (02:54)
[2016-04-12] MEDS ORDERED: ACETAMINOPHEN TAB 325 MG TAB PO PRN (02:54)
[2016-04-12] MEDS ORDERED: MAG HYDROX/AL HYDROX/SIMETH 30 ML CUP PO PRN (02:54)
[2016-04-12 04:28] VITALS: BMI 16.3
[2016-04-12] MEDS: LEVOTHYROXINE 25 MCG TAB PO SCH ×3 (04:50→10:11)
[2016-04-12] MEDS ORDERED: LEVOTHYROXINE 25 MCG TAB PO SCH (09:00)
[2016-04-12] MEDS: VENLAFAXINE HCL ER 150 MG CAP PO SCH (10:04)
[2016-04-12] MEDS: GABAPENTIN 100 MG CAP PO SCH ×3 (10:04→21:05)
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
[2016-04-12] MEDS: traZODone HCL 50 MG TAB PO SCH (21:05)
[2016-04-13] MEDS: LEVOTHYROXINE 25 MCG TAB PO SCH (06:26)
[2016-04-13] MEDS: VENLAFAXINE HCL ER 150 MG CAP PO SCH (09:42)
[2016-04-13] MEDS: GABAPENTIN 100 MG CAP PO SCH ×3 (09:42→21:12)
--- NOTE | 2016-04-13 10:23 | P.PN ---
Progress Note - Text Interval history: The patient is found in group she follows me to an interview room. She states that she is very troubled that she was admitted here against her well. She reports that she saw her nurse practitioner with [facility] the other day she felt that she expresses some mood symptoms but the session went well. She was surprised that the police showed up at her parents home on Wednesday evening to take her to the hospital. She reports that she has been cooperative with appointments and medications and doesn't understand why she is here. I did review Dr. Jacobsen's admission note. The patient states that's her nurse practitioner began lowering the Effexor took her off of BuSpar restarted Neurontin. The patient states that she is on a new medication possibly Trintellix. She is reporting no suicidal thoughts she states she feels betrayed that she was brought in like this and doesn't know why. She does have a court hearing scheduled for tomorrow. She is reporting no recent eating disorder behavior. Mental status exam: The patient is a very thin female she is dressed in her own clothing hygiene grooming adequate. Eye contact is appropriate speech is fluent. She reports that her mood is "betrayed". Affect is briefly tearful. She reports no suicidal or homicidal ideation intent or plan. She is endorsing no symptoms of psychosis. She does not appear hypomanic or manic. Insight and judgment appears to be grossly intact. She demonstrates no verbal or physical aggressiveness. She is alert and oriented to person place and date. She is cooperative with the interview and appropriately participates. Plan: The patient will be continued on the Effexor XR, Neurontin, trazodone as written. We will attempt to clarify recent changes. I have placed a call with case her nurse practitioner last week and we will attempt to contact her again. The patient has a court hearing tomorrow. We will monitor her for safety and encourage her participation in the milieu. Vital signs reviewed.
--- NOTE | 2016-04-13 12:38 | CONS ---
DATE OF CONSULTATION: Reason for consultation: Medical management of hypothyroidism, secondary to smoking and other medical problems. HISTORY OF PRESENT ILLNESS: Ms. Daniels is a 45-year-old female with known history of hypothyroidism and depression who was brought to the hospital by police on a court order. The patient does have a long-standing history of psychiatric disorder for which she is taking multiple psychiatric medications. She was hospitalized approximately 10 days ago due to intentional overdose of Tylenol. The patient says that she has been currently very tired. Currently denied any suicidal or homicidal ideation. No fever. No chills. No complaint of chest pain or short of breath. No nausea or vomiting, abdominal pain. No diarrhea. No dysuria. All other complete review of systems negative except as above. PAST MEDICAL HISTORY: Hypothyroidism, anorexia, bulimia and depression. PAST SURGICAL HISTORY: Breast implants. PSYCHOSOCIAL HISTORY: Anxiety and depression. SOCIAL HISTORY: Currently every day smoker, smokes about 1 to 2 cigarettes per day. Denied any alcohol. Denied any drugs or IVDU. FAMILY HISTORY: Mother is healthy and age 71, father is alive and healthy at age 80. No known drug allergies. Home medications include: 1. Levothyroxine. 2. Venlafaxine. 3. Buspirone. 4. Trazodone. PHYSICAL EXAMINATION: A 45-year-old female, sitting in a chair, comfortably, awake, alert, oriented x3. He appears to be depressed. VITALS: Blood pressure 131/80, pulse 85, respirations 20, temperature afebrile, pulse ox 98% on room air. HEENT: Atraumatic, normocephalic. Neck is supple. No JVD. CVS: S1, S2 heard. No murmurs or gallop, no rub. LUNGS: Bilateral air entry is present. No wheezing. No crackles. Nonlabored breathing. ABDOMEN: Soft, nontender. Bowel sounds present. CENTRAL NERVOUS SYSTEM: Awake, alert and oriented x3. No focal neurologic deficit. Cranial nerves are grossly intact. EXTREMITIES: No edema. Pulses palpable bilaterally. No clubbing or cyanosis. PSYCHIATRIC: Cooperative, seems depressed, denied any suicidal ideation. LABORATORY DATA: WBC 8.0, hemoglobin 12.7, platelets 346. Sodium 143, potassium 3.6, chloride 100, bicarb is 33, BUN 19, creatinine 0.7, albumin 3.4. Urinary showed trace protein, small leukocyte esterase and moderate calcium oxide crystals. Urine toxicology showed benzodiazepines. EKG normal sinus rhythm. IMPRESSION: 1. Hypothyroidism. We will check TSH level. 2. Major depressive disorder with recent suicide attempt with Tylenol overdose. 3. Opiate use disorder. 4. Bulimia nervosa. PLAN: Continued on antidepressant medications as per psychiatry and will be continued on levothyroxine 25 mcg daily. We will check TSH level. Liver enzymes are normal limits. Will continue the current management. Further recommendations based on clinical course. Thank you for the consult.
[2016-04-13] MEDS: traZODone HCL 50 MG TAB PO SCH (21:12)
[2016-04-13 21:15] VITALS: BP 98/60
[2016-04-14] MEDS: LEVOTHYROXINE 25 MCG TAB PO SCH (05:56)
[2016-04-14 06:41] VITALS: PULSE 80; RESP 14; TEMP 97.4
--- NOTE | 2016-04-14 08:44 | P.DS ---
Providers Date of admission: 04/12/16 02:12 Expected date of discharge: 04/14/16 Attending physician: Girish Santana Consults: 04/12/16 02:54 Consult Physician Routine Consulting Provider: Asael Sommer Consult Reason/Comments: For H & P for Medical Follow Up Do you want consulting provider notified?: Yes, Notify in am Primary care physician: Tamika Beckman - Discharge Diagnosis(es) (1) Major depressive disorder Current Visit: Yes Status: Acute Priority: Medium (2) Bulimia nervosa Current Visit: No Status: Chronic Priority: High Hospital Course: Brief summary of admission note: The patient's is a 45-year-old female who was admitted to the mental health unit through the emergency room as she was brought in on a pickup order. The patient states that Wednesday evening she was at her parents home and the police arrived to bring her to the hospital. She was unaware as to why this was happening as she had recently seen her therapist and nurse practitioner prescriber. She receives treatment through [facility]. There is documentation that the patient had expressed suicidal thoughts on the during a routine therapy session however the patient states those were discussed and she went home after that session. Her therapist pursued a demand for hearing subsequently. The patient does have a serious eating disorder and there is ongoing concern regarding her eating disorder behavior. There had been discussion of referring her to a hospital in [place] for the treatment of her bulimia. Summary of hospital course: The patient was admitted to the mental health unit in voluntarily. She has a court hearing scheduled for today. I did review Dr. Jacobsen's admission note. I met with the patient yesterday and today. I was able to reach the patient's nurse practitioner Deidre King to discuss the patient's case and recent care. The patient's was recently placed on Trintellix however that is not on formulary here and the patient did not bring the medication with her. The Effexor XR was reduced 150 mg daily prior to this admission she was taken off of BuSpar and placed on Neurontin 100 mg 3 times daily. Ms. King and I both agree that the patient would not benefit from use of opiates or benzodiazepines. We both agree that there is concern over her eating disorder symptoms. The patient states that she has not been participating in any purging behavior lately certainly not during this admission. The patient attended group selectively she demonstrated no agitated behavior. She underwent routine medical consultation. No recommendations provided. At no time did the patient express any suicidal or homicidal ideation intent or plan. Mental status exam: The patient is a thin female she is dressed in her own clothing hygiene grooming adequate. She is clearly underweight. Speech is spontaneous fluent she cooperates during the interview. Thought process is linear and goal directed there is no evidence of tangential thinking loose associations or flight of ideas. She demonstrates no symptoms of psychosis she endorses no hallucinations or specific delusions. She demonstrates no verbal or physical aggressiveness. She denies having any hopelessness thinking or any suicidal or homicidal ideation intent or plan. She voices that she is contemplating attendance at the eating disorder program in [place]. Insight and judgment grossly intact. She is alert and oriented to person place and date she is able to spell world backwards short- term memory is intact. Affect is appropriately expressive today. Impressions 1. Major depressive disorder recurrent, bulimia nervosa, opiate use disorder 2. Cluster B traits rule out borderline personality disorder traits 3. Hypothyroidism 4. Psychosocial dysfunction due to psychiatric symptoms. Plan: The patient will be discharged mental health unit today following her court hearing. We will recommend a treatment order for outpatient care for up to 90 days. She will continue on Neurontin 100 mg 3 times daily we will drop the Effexor down to 75 mg daily she will continue the plan as prescribed by her nurse practitioner to initiate Trintellix 10 mg daily. She may continue using trazodone 50 mg at bedtime. The patient is not an imminent safety risk she is appropriate for transition back to outpatient care. I do recommend that she participate in the eating disorder program if it is available to her. She is instructed to abstain from any use of opiates or benzodiazepines. She will continue following up with community mental health social work will verify her next appointment. The patient will return living with her parents social work will verify that they are agreeable. The patient is instructed to return to hospital if any acute safety concerns. Patient Condition at Discharge: Stable Plan - Discharge Summary New Discharge Prescriptions: Gabapentin [Neurontin] 100 mg PO TID #45 cap Venlafaxine HCl ER [Effexor Xr] 37.5 mg PO DAILY #12 cap traZODone HCL 50 mg PO HS #15 tablet Discharge Medication List Levothyroxine Sodium [Synthroid] 25 mcg PO DAILY #30 tab 03/31/16 [Rx] Gabapentin [Neurontin] 100 mg PO TID #45 cap 04/14/16 [Rx] Venlafaxine HCl ER [Effexor Xr] 37.5 mg PO DAILY #12 cap 04/14/16 [Rx] traZODone HCL 50 mg PO HS #15 tablet 04/14/16 [Rx] Follow up App[facility]ment(s)/Ref[facility] - 04/15/16 1:45 pm (Alexia Ash) [facility] [Outside] - 04/14/16 11:30 am (Gabrielle Conley) Tamika Beckman MD [Primary Care Provider] - 1-2 days
[2016-04-14] MEDS: GABAPENTIN 100 MG CAP PO SCH (09:50)
[2016-04-14] MEDS: VENLAFAXINE HCL ER 150 MG CAP PO SCH (09:50)
== END 2016-04-14 14:09 | disposition home or self-care (01) | DRG 885 ==
LOC: EC 20:35 → 3MHU 04-12 02:12
PROVIDERS: ADMIT Psychiatry & Neurology Psychiatry; ATTEND Psychiatry & Neurology Psychiatry
DX: F33.9 Major depressive disorder, recurrent, unspecified (principal); F50.00 Anorexia nervosa, unspecified; R45.851 Suicidal ideations; F50.2 Bulimia nervosa; E03.9 Hypothyroidism, unspecified; F17.210 Nicotine dependence, cigarettes, uncomplicated; F11.10 Opioid abuse, uncomplicated; F41.9 Anxiety disorder, unspecified; F60.3 Borderline personality disorder; Z79.899 Other long term (current) drug therapy; Z91.5 Personal history of self-harm
CPT/HCPCS: 36415; 80053; 80306; 81001; 81025; 82075; 83520; 83735; 84443; 85025; 93005; 99285

== ENCOUNTER → 2016-06-08 | Outpatient (CLI) | payer OTHER ==
[2016-06-08 15:31] LABS: Follicle Stimulating Hormone <0.7 mIU/mL; HCG,Quantitative Serum <2.4 mIU/mL; Prolactin 4.5 ng/mL (3.0-18.6)
[2016-06-08 15:46] LABS: Estradiol 22 pg/mL
== END | disposition home or self-care (01) ==
LOC: LABWHC1 14:32
PROVIDERS: ATTEND Obstetrics & Gynecology
DX: N91.2 Amenorrhea, unspecified (principal)
CPT/HCPCS: 36415; 82670; 83001; 83002; 84146; 84443; 84702

== ENCOUNTER → 2016-06-09 | Outpatient (CLI) | payer OTHER ==
[2016-06-09 12:26] LABS: EKG EKG PERFORMED
[2016-06-09 12:53] LABS: Basophils # (A) 0.1 k/uL (0-0.2); Basophils % (A) 1 %; CH 31.4; CHCM 33.6; Eosinophils # (A) 0.2 k/uL (0-0.7); Eosinophils % (A) 2 %; HCT 40.4 % (34.0-46.0); HDW 2.27; HGB 13.2 gm/dL (11.4-16.0); Luc # (Auto) 0.19; Luc % (Auto) 3; Lymphocytes # (A) 1.7 k/uL (1.0-4.8); Lymphocytes % (A) 22 %; MCH 30.6 pg (25.0-35.0); MCHC 32.6 g/dL (31.0-37.0); MCV 93.9 fL (80.0-100.0); Mean Platelet Volume 6.9; Monocytes # (A) 0.4 k/uL (0-1.0); Monocytes % (A) 5 %; Neutrophils # (A) 5.1 k/uL (1.3-7.7); Neutrophils % (A) 68 %; RBC 4.31 m/uL (3.80-5.40); RDW 13.3 % (11.5-15.5); WBC 7.6 k/uL (3.8-10.6); WBC (Perox) 7.78
[2016-06-09 13:06] LABS: ALT 42 U/L (9-52); AST 23 U/L (14-36); Alkaline Phosphatase 61 U/L (38-126); Anion Gap 12 mmol/L; Blood Urea Nitrogen 9 mg/dL (7-17); Calcium 9.4 mg/dL (8.4-10.2); Carbon Dioxide 26 mmol/L (22-30); Chloride 103 mmol/L (98-107); Glucose 89 mg/dL (74-99); Non-African American GFR(MDRD) >60 (>60 ml/min/1.73 sqM); Potassium 4.7 mmol/L (3.5-5.1); Sodium 141 mmol/L (137-145); Total Bilirubin 0.3 mg/dL (0.2-1.3); Total Protein 6.3 g/dL (6.3-8.2)
[2016-06-11 15:28] LABS: Magnesium 1.9 mg/dL (1.6-2.3); Phosphorous 4.8 mg/dL (2.5-4.5)
== END | disposition home or self-care (01) ==
LOC: LABWHC1 12:15
PROVIDERS: ATTEND Nurse Practitioner Psychiatric/Mental Health
DX: R63.0 Anorexia (principal); F33.1 Major depressive disorder, recurrent, moderate
CPT/HCPCS: 36415; 80053; 80306; 83735; 84100; 85025; 93005

== ENCOUNTER → 2019-01-17 | Outpatient (CLI) | payer OTHER ==
[2019-01-17 11:37] LABS: Basophils # (A) 0.1 k/uL (0-0.2); Basophils % (A) 2 %; Eosinophils # (A) 0.2 k/uL (0-0.7); Eosinophils % (A) 4 %; HCT 40.9 % (34.0-46.0); HGB 13.2 gm/dL (11.4-16.0); Lymphocytes # (A) 1.1 k/uL (1.0-4.8); Lymphocytes % (A) 25 %; MCH 29.9 pg (25.0-35.0); MCHC 32.3 g/dL (31.0-37.0); MCV 92.4 fL (80.0-100.0); Mean Platelet Volume 6.5; Monocytes # (A) 0.3 k/uL (0-1.0); Monocytes % (A) 7 %; Neutrophils # (A) 2.5 k/uL (1.3-7.7); Neutrophils % (A) 59 %; Platelet Count 334 k/uL (150-450); RBC 4.42 m/uL (3.80-5.40); RDW 13.3 % (11.5-15.5); WBC 4.3 k/uL (3.8-10.6)
[2019-01-17 16:50] LABS: ALT 33 U/L (8-44); AST 31 U/L (13-35); African American GFR (CKD) 119.6 (60.0-200.0); Albumin/Globulin Ratio 2.39 (1.60-3.17); Alkaline Phosphatase 124 U/L (41-126); Bilirubin, Conjugated <0.20 mg/dL (0.20-0.40); Calcium 9.1 mg/dL (8.7-10.3); Carbon Dioxide 28.9 mmol/L (21.6-31.8); Chloride 102 mmol/L (96-109); Chol/HDL Ratio 2.63; Cholesterol 237 mg/dL (0-200); Globulin 1.8 g/dL (1.6-3.3); Glucose 102 mg/dL (70-110); Sodium 142 mmol/L (135-145); Total Bilirubin 0.4 mg/dL (0.2-1.2); Total Protein 6.1 g/dL (6.2-8.2); Triglycerides <50.0 mg/dL (0.0-149.0)
[2019-01-17 17:38] LABS: Hemoglobin A1C 5.1 % (4.0-6.0)
== END | disposition home or self-care (01) ==
LOC: LABWHC1 09:51
PROVIDERS: ATTEND Psychiatry & Neurology Psychiatry
DX: Z51.81 Encounter for therapeutic drug level monitoring (principal); Z79.899 Other long term (current) drug therapy
CPT/HCPCS: 36415; 80053; 80061; 82248; 83036; 84439; 84443; 85025

== ENCOUNTER → 2019-11-21 | Outpatient (CLI) | payer OTHER ==
[2019-11-21 16:57] LABS: Basophils % (A) 1 %; Eosinophils # (A) 0.1 k/uL (0-0.7); Eosinophils % (A) 3 %; HGB 12.7 gm/dL (11.4-16.0); Lymphocytes # (A) 1.4 k/uL (1.0-4.8); Lymphocytes % (A) 25 %; MCH 29.7 pg (25.0-35.0); MCHC 31.7 g/dL (31.0-37.0); MCV 93.5 fL (80.0-100.0); Mean Platelet Volume 7.6; Monocytes # (A) 0.3 k/uL (0-1.0); Monocytes % (A) 6 %; Neutrophils # (A) 3.4 k/uL (1.3-7.7); Neutrophils % (A) 64 %; Platelet Count 239 k/uL (150-450); RBC 4.28 m/uL (3.80-5.40); WBC 5.4 k/uL (3.8-10.6)
[2019-11-22 01:35] LABS: Hemoglobin A1C 5.2 % (4.0-6.0)
[2019-11-22 02:02] LABS: ALT 21 U/L (8-44); AST 28 U/L (13-35); African American GFR (CKD) 119.6 (60.0-200.0); Albumin/Globulin Ratio 2.16 (1.60-3.17); Alkaline Phosphatase 84 U/L (41-126); BUN/Creat Ratio 11.43 Ratio (12.00-20.00); Bilirubin, Conjugated <0.20 mg/dL (0.20-0.40); Carbon Dioxide 29.4 mmol/L (21.6-31.8); Chloride 103 mmol/L (96-109); Chol/HDL Ratio 2.47; Cholesterol 180 mg/dL (0-200); Globulin 1.9 g/dL (1.6-3.3); Glucose 69 mg/dL (70-110); Non-African American GFR(CKD) 103.2 (60.0-200.0); Potassium 4.1 mmol/L (3.5-5.5); Sodium 142 mmol/L (135-145); Total Bilirubin 0.4 mg/dL (0.3-1.2); Triglycerides <50.0 mg/dL (0.0-149.0)
== END | disposition home or self-care (01) ==
LOC: LABWHC1 15:18
PROVIDERS: ATTEND Psychiatry & Neurology Psychiatry
DX: Z51.81 Encounter for therapeutic drug level monitoring (principal); Z79.899 Other long term (current) drug therapy
CPT/HCPCS: 36415; 80053; 80061; 82248; 83036; 84439; 84443; 85025

== ENCOUNTER → 2024-05-23 | Outpatient (CLI) | payer OTHER ==
[2024-05-23 10:48] VITALS: BP 96/65; PULSE 60; RESP 16; TEMP 97.7
--- NOTE | 2024-05-23 12:16 | P.HPOB ---
History of Present Illness H&P Date: 05/23/24 Chief Complaint: The patient is here for her routine gynecologic exam. This is a 53-year-old with an LMP of 2009. Patient states she continues to have a small lump on the right labia. This was previously seen in 2022 and was felt to possibly represent a small condyloma. Pap smear on 05/06/2022 showed ASCUS and positive high risk HPV testing (-16, -18). Had a colposcopy by Dr. Churchill on 10/28/2022 which showed some atypia. At that time a right labial lesion was noted to be about 3 mm. She did not have follow-up with Dr. Churchill. She was treated for a yeast infection about 1 month ago through an urgent care clinic. She states the itching and irritation have resolved. She still notices a slight vaginal discharge without odor. The discharge is moderately thick and whitish in appearance. She is otherwise without gynecologic complaints and denies any postmenopausal bleeding. She has been sexually active 1 time since her last visit here and did use a condom. Review of Systems She had about 24 pounds over the past 2 years. She states she has been trying to take better care of herself and was underweight in the past. She denies respiratory, cardiac, or GI problems. Past Medical History Past Medical History: Thyroid Disorder Additional Past Medical History / Comment(s): Hypothyroidism. History of anxorexia, buliemia, depression, and prescription opioid addiction. 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 Positive HPV on a Pap smear in 2022. No other history of STDs. History of Any Multi-Drug Resistant Organisms: None Reported Additional Past Surgical History / Comment(s): BL breast inplants. Redo of bilateral breast implants. Past Anesthesia/Blood Transfusion Reactions: No Reported Reaction Past Psychological History: Anxiety, Depression Additional Psychological History / Comment(s): Eating disorder Smoking Status: Former smoker Past Alcohol Use History: None Reported Additional Past Alcohol Use History / Comment(s): She admits to previously smoking about a half a pack of cigarettes per day on and off for 20 years. She states she quit smoking in 2016. She denies use of alcohol. She has used marijuana in the past but denies use since about 2019. Past Drug Use History: Marijuana, Prescription Drug Abuse Additional Drug Use History / Comment(s): ADDICTION TO VICODIN 2016. Prescri ption narcotic use for several years. Additional History: She is and is currently now sexually active with anybody at this time. 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 - Past Family History Mother Family Medical History: Cancer Additional Family Medical History / Comment(s): Cervical cancer. Father Family Medical History: Renal Disease Additional Family Medical History / Comment(s): Renal failure. Brother(s) Family Medical History: Cancer Additional Family Medical History / Comment(s): Lung cancer. Medications and Allergies Home Medications Medication Instructions Recorded Confirmed Type Levothyroxine Sodium [Synthroid] 25 mcg PO DAILY #30 tab 03/31/16 05/23/24 Rx Gabapentin [Neurontin] 100 mg PO TID #45 cap 04/14/16 05/23/24 Rx Buprenorphine HCl/Naloxone HCl 2 film PO DIRECTED 05/06/22 05/23/24 History [Suboxone 4 mg-1 mg Sl Film] Mirtazapine [Remeron] 45 mg PO DAILY 05/06/22 05/23/24 History Dextromethorphan HBr/Bupropion 1 tab PO DAILY 05/23/24 05/23/24 History [Auvelity ER 45-105 mg Tablet] Allergies Allergy/AdvReac Type Severity Reaction Status Date / Time No Known Allergies Allergy Verified 05/06/22 10:02 Exam Vital Signs Temp Pulse Resp BP Pulse Ox 05/23/24 10:42 97.7 F 60 16 96/65 97 Intake and Output 05/22/24 05/23/24 05/23/24 22:59 06:59 14:59 Other: Weight 55.338 kg Height 5 feet 3 inches, weight 122 pounds, BMI 21.6. This is a well-developed well-nourished white female who is alert and oriented times 3 in no acute distress. HEENT: Within normal limits. NECK: Supple without mass or thyromegaly. CHEST AND LUNGS: Clear to auscultation. HEART: Regular rate and rhythm. BREASTS: Are without mass or discharge. Breasts are consistent with bilateral implants. AXILLARY EXAM: Negative for adenopathy. BACK: Negative for CVA tenderness. ABDOMEN: Soft, nontender, without palpable masses. PELVIC EXAM: External genitalia reveals mild atrophy. There is a small slightly raised lesion on the inner aspect of the right labia minora and measures approximately 3 mm. It is the color of mucosa. This is slightly firm compared to the surrounding tissue and is nontender and not erythematous. There are no signs of ulceration. Cervix appears normal with mild atrophy. There is a small amount of moderately thick whitish discharge without odor. There is no evidence of prolapse. The uterus is midposition, nongravid size and nontender. There are no palpable adnexal masses or tenderness. RECTAL EXAM: Rectovaginal exam is negative for mass or tenderness and is negative for occult blood. EXTREMITIES: Nontender. IMPRESSION: 1. 53-year-old menopausal female with small 3 mm inner labia minora lesion on right side. 2. Small discharge and she is status post treatment for a vaginal yeast infection about 1 month ago. Differential diagnosis will include physiologic discharge, Danna vaginitis, Gardnerella bacterial vaginosis, chlamydia, trichomonas, and gonorrhea. 3. Previous colposcopic examination in 2022 showing some atypia following an ASCUS Pap smear with positive high-risk HPV testing (-16, -18). This is her first follow-up since then. PLAN: 1. Pap smear cotest was performed. We will plan management as per ASCCP management guidelines. GC and Chlamydia testing will be obtained from the Pap smear. 2. Self breast awareness was discussed with the patient. We have also discussed symptoms associated with inflammatory breast cancer. 3. Screening is due and the order slip was given to the patient for this. 4. Affirm Vaginitis panel was obtained from the vagina. 5. We have discussed management of the vulvar lesion. She states since it has been there for so long, it does bother her and she is requesting removal. We have also discussed the option of continuing conservative management. At this time I think it is most likely benign, but since it is bothersome to her, we will plan on removing it. Please schedule. 6. Osteoporosis prevention was discussed. I have stressed the importance of adequate calcium, vitamin D and regular exercise. Recommended amounts of calcium and vitamin D were also discussed. 7. STD prevention was discussed. I stressed the importance of limiting sexual partners. Have also recommended using condoms if she is sexually active. 8. She was advised to return in one year for her annual well woman exam and as needed.
[2024-05-24 14:53] LABS: Gardnerella Negative (Negative); Trichomonas Negative (Negative)
== END ==
LOC: WWCWWP 10:20
PROVIDERS: ATTEND Obstetrics & Gynecology
DX: N95.1 Menopausal and female climacteric states (principal); N90.89 Other specified noninflammatory disorders of vulva and perineum; B37.31 Acute candidiasis of vulva and vagina; A59.9 Trichomoniasis, unspecified; A74.9 Chlamydial infection, unspecified; F17.210 Nicotine dependence, cigarettes, uncomplicated; Z99.89 Dependence on other enabling machines and devices
CPT/HCPCS: 87480; 87510; 87660

== ENCOUNTER → 2024-06-07 | Day surgery (SDC) | payer OTHER ==
[2024-06-07 11:31] VITALS: RESP 16; TEMP 98.1
--- NOTE | 2024-06-07 12:21 | P.PCN ---
Date of Procedure: 06/07/24 Preoperative Diagnosis: Inner right labia minora growth. Postoperative Diagnosis: same Procedure(s) Performed: removal of right labial growth Anesthesia: local Surgeon: Garrick Gutierrez Estimated Blood Loss (ml): 1 Pathology: other (right labial growth) Condition: stable Disposition: same day Indications for Procedure: This was a 53-year-old menopausal female who had a small raised lesion on the inner right labia minora. She states has been there about 2 years. Her most recent Pap smear was negative with a positive high-risk HPV testing. Operative Findings: The inner right labia minora had a raised growth approximately 3 x 3 mm. This is not inflamed. The rest of the external genitalia was unremarkable. Description of Procedure: We have discussed the procedure including possible risks and complications. We have discussed the possibility of bleeding, infection, scarring as well as return of the growth. All questions were answered. The patient states the lesion is bothersome to her. We have discussed the option of conservative management without removal. She would like to have it removed. Preprocedure vital signs: Blood pressure 101/66, height 5 feet 3 inches, weight 122 pounds, temperature 98.1, pulse 63, pulse oximeter 97%. Patient was placed in the lithotomy position. The area was prepped with Betadine solution x 3. About 0.5 milliliters of 1% lidocaine was used for local anesthesia. Following determination of adequate anesthesia a cervical biopsy instrument was used to remove the entire lesion. Silver nitrate was used to make the site hemostatic. A small amount of antibiotic ointment was placed at the site. 1 piece of gauze was placed between the labia. The patient tolerated the procedure well. The estimated blood loss was less than 1 cc The patient's postprocedure vital signs include blood pressure of 98/66, pulse 62. The patient was discharged home in stable condition.. The patient was instructed to call if she has heavy bleeding, increasing pain, redness to the area, or problems. She was instructed to abstain from all sexual activity for 2 weeks. She was instructed to use a small amount of Neosporin directly to the area once a day. Specimen was sent for pathological evaluation.
[2024-06-07 12:27] VITALS: BP 98/66; PULSE 54
== END ==
LOC: WWCWWP 11:12
PROVIDERS: ATTEND Obstetrics & Gynecology
DX: N90.69 Other specified hypertrophy of vulva (principal); Z78.0 Asymptomatic menopausal state
CPT/HCPCS: 88305; 88341; 88342